=== PATIENT | female | born 1945 | race African-American/Black ===

== ENCOUNTER 2017-07-24 06:22 | Day surgery (SDC) | payer OTHER ==
[~2017-07-24] VITALS: Ht 167.6 cm; Wt 88.2 kg
[~2017-07-24 06:22] MED LIST: ALBU8.5H8 IH; ALPR0.5T8 PO; CARI350T PO; CODE118S2 PO; DIAZ10 PO; ESCI5TAB PO; GLIP5TAB11 PO; HYDR-3971 PO; INSLAN SQ; LEVO500T2 PO; MOME13HF IH; MORP-30 PO; NYST5S PO
[2017-07-24] MEDS ORDERED: BENZOCAINE 20% 50 MCG/SPRAY 57 GM TP ONE (06:23)
[2017-07-24] MEDS ORDERED: LIDOCAINE HCL 2% 30 ML JELLY TP ONE (06:23)
[2017-07-24] MEDS ORDERED: LIDOCAINE HCL 4% 50 ML SOLUTION TP ONE (06:23)
[2017-07-24] MEDS ORDERED: ALBUTEROL SULFATE 2.5 MG/0.5 ML NEB SOLUTION NEB ONE (06:23)
[2017-07-24] MEDS ORDERED: SODIUM CHLORIDE 0.9% 1,000 ML IV ONE ×2 (06:32→08:00)
[2017-07-24] MEDS ORDERED: HYDR25TA PO (07:04)
[2017-07-24] MEDS ORDERED: CETI-290 PO (07:04)
[2017-07-24] MEDS ORDERED: INSU3INS3 SQ (07:04)
[2017-07-24] MEDS ORDERED: OMEP20 PO (07:04)
[2017-07-24] MEDS ORDERED: PRAV40TA4 PO (07:04)
[2017-07-24] MEDS ORDERED: PARO20TA24 PO (07:04)
[2017-07-24] MEDS ORDERED: AMLO-512 PO (07:04)
[2017-07-24 07:08] LABS: GLUCOMETER DEV NAME(LOC) SDS 5; GLUCOSE,POINT OF CARE 167 MG/DL (70-110)
[2017-07-24] MEDS ORDERED: OXYB5 PO (07:25)
[2017-07-24] MEDS ORDERED: HYDR-305 PO (07:25)
[2017-07-24] MEDS ORDERED: BUDE10.2 IH (07:25)
[2017-07-24] MEDS ORDERED: DIAZ5 PO (07:25)
[2017-07-24] MEDS ORDERED: MORP15 PO (07:25)
[2017-07-24] MEDS ORDERED: XALA2.5OS OU (07:25)
[2017-07-24] MEDS ORDERED: UMEC1DIS IH (07:25)
[2017-07-24] MEDS ORDERED: FLUT16H NASAL (07:25)
[2017-07-24] MEDS ORDERED: TRIA1CAP2 PO (07:30)
[2017-07-24] MEDS ORDERED: PANT40TA25 PO (07:30)
[2017-07-24] MEDS ORDERED: LEVO500 PO (07:30)
[2017-07-24] MEDS ORDERED: SITA50 PO (07:30)
[2017-07-24] MEDS ORDERED: ONDA4 PO (07:30)
[2017-07-24] MEDS ORDERED: MONT10TA21 PO (07:30)
[2017-07-24] MEDS ORDERED: OSEL75 PO (07:30)
[2017-07-24] MEDS ORDERED: MIDAZOLAM HCL 2 MG/2 ML VIAL ONE (07:47)
[2017-07-24] MEDS ORDERED: FentaNYL CITRATE-PF 100 MCG/2 ML VIAL ONE (07:47)
[2017-07-24] MEDS ORDERED: MethylPREDNISolone SOD SUCC 125 MG/2 ML VIAL IVP ONE (08:45)
[2017-07-24] MEDS ORDERED: MethylPREDNISolone SOD SUCC 125 MG/2 ML VIAL ONE (09:25)
[2017-07-24] MEDS ORDERED: OXYGEN THERAPY IH SCH (20:00)
== END 2017-07-24 10:55 | disposition home or self-care (01) ==
LOC: SURGERY 06:22
PROVIDERS: ATTEND Internal Medicine Critical Care Medicine
DX: J38.4 Edema of larynx (principal); B37.0 Candidal stomatitis; J84.111 Idiopathic interstitial pneumonia, not otherwise specified; E11.9 Type 2 diabetes mellitus without complications; I10 Essential (primary) hypertension; Z85.819 Personal history of malignant neoplasm of unspecified site of lip, oral cavity, and pharynx; Z98.890 Other specified postprocedural states; Z87.891 Personal history of nicotine dependence; Z79.4 Long term (current) use of insulin; Z79.899 Other long term (current) drug therapy; Z88.0 Allergy status to penicillin; Z91.013 Allergy to seafood; Z98.49 Cataract extraction status, unspecified eye
CPT/HCPCS: 31623; 31624; 71045; 82962; 87015; 87070; 87147; 87205; 87220; 88108; 88312; 93005; J2250; J2930; J3010; J7030

== ENCOUNTER 2018-02-10 06:36 | Day surgery (SDC) | payer OTHER ==
[~2018-02-10] VITALS: Ht 167.6 cm; Wt 86.4 kg
[~2018-02-10 06:36] MED LIST changes: -ALBU8.5H8 IH; -ALPR0.5T8 PO; +AMLO-512 PO; +BUDE10.2 IH; -CARI350T PO; +CETI-290 PO; -CODE118S2 PO; -DIAZ10 PO; +DIAZ5 PO; -ESCI5TAB PO; +FLUT16H NASAL; -GLIP5TAB11 PO; +HYDR-305 PO; -HYDR-3971 PO; +HYDR25TA PO; -INSLAN SQ; +INSU3INS3 SQ; +LEVO500 PO; -LEVO500T2 PO; -MOME13HF IH; +MONT10TA21 PO; -MORP-30 PO; +MORP15 PO; -NYST5S PO; +OMEP20 PO; +ONDA4 PO; +OSEL75 PO; +OXYB5 PO; +PANT40TA25 PO; +PARO20TA24 PO; +PRAV40TA4 PO; +SITA50 PO; +TRIA1CAP2 PO; +UMEC1DIS IH; +XALA2.5OS OU
[2018-02-10] MEDS ORDERED: ALBUTEROL SULFATE 2.5 MG/0.5 ML NEB SOLUTION NEB ONE (06:37)
[2018-02-10] MEDS ORDERED: LIDOCAINE HCL 4% 50 ML SOLUTION TP ONE (06:37)
[2018-02-10] MEDS ORDERED: LIDOCAINE HCL 2% 30 ML JELLY TP ONE (06:37)
[2018-02-10] MEDS ORDERED: BENZOCAINE 20% 50 MCG/SPRAY 57 GM TP ONE (06:37)
[2018-02-10] MEDS ORDERED: SODIUM CHLORIDE 0.9% 1,000 ML IV ONE (06:48)
[2018-02-10] MEDS: SODIUM CHLORIDE 0.9% 1,000 ML IV ONE (07:34)
[2018-02-10 07:38] LABS: GLUCOMETER DEV NAME(LOC) SDS 5; GLUCOSE,POINT OF CARE 125 MG/DL (70-110)
[2018-02-10] MEDS ORDERED: MIDAZOLAM HCL 2 MG/2 ML VIAL ONE (07:50)
[2018-02-10] MEDS ORDERED: FentaNYL CITRATE-PF 100 MCG/2 ML VIAL ONE (07:50)
[2018-02-10] MEDS ORDERED: MethylPREDNISolone SOD SUCC 125 MG/2 ML VIAL ONE (09:16)
[2018-02-10] MEDS: MethylPREDNISolone SOD SUCC 125 MG/2 ML VIAL IVP ONE (09:21)
[2018-02-10] MEDS ORDERED: OXYGEN THERAPY IH SCH (20:00)
== END 2018-02-10 10:20 | disposition home or self-care (01) ==
LOC: SURGERY 06:36
PROVIDERS: ATTEND Internal Medicine Critical Care Medicine
DX: J38.4 Edema of larynx (principal); B37.0 Candidal stomatitis; J84.111 Idiopathic interstitial pneumonia, not otherwise specified; J44.9 Chronic obstructive pulmonary disease, unspecified; I10 Essential (primary) hypertension; E11.9 Type 2 diabetes mellitus without complications; K21.9 Gastro-esophageal reflux disease without esophagitis; Z79.4 Long term (current) use of insulin; Z79.891 Long term (current) use of opiate analgesic; Z85.818 Personal history of malignant neoplasm of other sites of lip, oral cavity, and pharynx; Z87.891 Personal history of nicotine dependence; Z91.013 Allergy to seafood; Z87.442 Personal history of urinary calculi; Z93.1 Gastrostomy status; Z98.49 Cataract extraction status, unspecified eye; Z79.2 Long term (current) use of antibiotics; Z88.0 Allergy status to penicillin; Z79.899 Other long term (current) drug therapy; Z98.890 Other specified postprocedural states
CPT/HCPCS: 31623; 31624; 71045; 82962; 87015; 87070; 87205; 87206; 87220; J2250; J2930; J3010; J7030; 88108; 88312

== ENCOUNTER 2019-07-25 05:49 | Day surgery (SDC) | payer OTHER ==
[~2019-07-25] VITALS: Ht 167.6 cm; Wt 88.6 kg
[~2019-07-25 05:49] MED LIST changes: -AMLO-512 PO; +AMLO10TA7 PO; -CETI-290 PO; +CETI10TA59 PO; -HYDR-305 PO; +HYDR-4455 PO; +ONDA-104 PO; -ONDA4 PO; +SODIUM CHLORIDE 0.9% 1,000 ML ONE
[2019-07-25] MEDS ORDERED: SODIUM CHLORIDE 0.9% 1,000 ML IV ONE (06:30)
[2019-07-25 07:11] LABS: GLUCOMETER DEV NAME(LOC) SDS.; GLUCOSE,POINT OF CARE 136 MG/DL (70-110)
[2019-07-25] MEDS ORDERED: FentaNYL CITRATE-PF 100 MCG/2 ML VIAL ONE (07:31)
[2019-07-25] MEDS ORDERED: MIDAZOLAM HCL 2 MG/2 ML VIAL ONE (07:31)
[2019-07-25] MEDS ORDERED: MethylPREDNISolone SOD SUCC 125 MG/2 ML VIAL IVP ONE (08:30)
[2019-07-25] MEDS ORDERED: MethylPREDNISolone SOD SUCC 125 MG/2 ML VIAL ONE (08:37)
[2019-07-25] MEDS ORDERED: LIDOCAINE 4% 50 ML SOLUTION ONE (17:17)
[2019-07-25] MEDS ORDERED: ALBUTEROL SULFATE 2.5 MG/0.5 ML NEB SOLUTION NEB ONE (17:17)
[2019-07-25] MEDS ORDERED: LIDOCAINE 2% 30 ML JELLY ONE (17:17)
[2019-07-25] MEDS ORDERED: BENZOCAINE 20% 50 MCG/SPRAY 57 GM ONE (17:17)
[2019-07-25] MEDS ORDERED: OXYGEN THERAPY IH SCH (20:00)
== END 2019-07-25 10:00 | disposition home or self-care (01) ==
LOC: SURGERY 05:49
PROVIDERS: ATTEND Internal Medicine Critical Care Medicine
DX: R05 Cough (principal); J34.89 Other specified disorders of nose and nasal sinuses; J98.8 Other specified respiratory disorders; J38.4 Edema of larynx; B37.0 Candidal stomatitis; I10 Essential (primary) hypertension; I25.10 Atherosclerotic heart disease of native coronary artery without angina pectoris; E78.00 Pure hypercholesterolemia, unspecified; E11.9 Type 2 diabetes mellitus without complications; K21.9 Gastro-esophageal reflux disease without esophagitis; Z87.442 Personal history of urinary calculi; Z93.1 Gastrostomy status; Z87.891 Personal history of nicotine dependence; Z98.49 Cataract extraction status, unspecified eye
CPT/HCPCS: 31623; 31624; 71045; 82962; 87015; 87070; 87101; 87205; 87206; 87220; 88108; 88312; J2250; J2930; J3010; J7030

== ENCOUNTER → 2022-03-19 | Day surgery (SDC) | payer OTHER ==
[~2022-03-19] VITALS: Ht 167.6 cm; Wt 87.3 kg
[~2022-03-19] MED LIST changes: +ALBUTEROL SULFATE 2.5 MG/0.5 ML NEB SOLUTION NEB ONE; +AMLO-258 PO; -AMLO10TA7 PO; +BENZOCAINE 20% 50 MCG/SPRAY 57 GM TP ONE; +CETI-450 PO; -CETI10TA59 PO; -DIAZ5 PO; +DIAZ5TAB5 PO; +FLUMAZENIL 0.1 MG/ML 5 ML VIAL IVP ONE; +FentaNYL CITRATE PF 100 MCG/2 ML VIAL ONE; -HYDR25TA PO; +HYDR25TA2 PO; +LEVO-72 PO; -LEVO500 PO; +LIDOCAINE 2% 11 ML JELLY TP ONE; +LIDOCAINE 4% 50 ML SOLUTION TP ONE; +MIDAZOLAM HCL 2 MG/2 ML VIAL ONE; +MIDAZOLAM HCL 5 MG/ML VIAL ONE; +MONT-35 PO; -MONT10TA21 PO; +MethylPREDNISolone SOD SUCC 125 MG/2 ML VIAL IVP ONE; +MethylPREDNISolone SOD SUCC 125 MG/2 ML VIAL ONE; -OXYB5 PO; +OXYB5TAB20 PO; +OXYGEN THERAPY IH SCH; +PANT-31 PO; -PANT40TA25 PO; +PARO-38 PO; -PARO20TA24 PO
[2022-03-19 07:23] LABS: COVID AG,FIA SOURCE NASAL SWAB
[2022-03-19 08:41] LABS: GLUCOMETER DEV NAME(LOC) SDS.; GLUCOSE,POINT OF CARE 71 MG/DL (70-110)
== END | disposition home or self-care (01) ==
LOC: SURGERY 06:56
PROVIDERS: ATTEND Internal Medicine Critical Care Medicine
DX: R05.3 Chronic cough (principal); B37.0 Candidal stomatitis; E11.9 Type 2 diabetes mellitus without complications; J44.9 Chronic obstructive pulmonary disease, unspecified; I10 Essential (primary) hypertension; Z20.822 Contact with and (suspected) exposure to COVID-19; Z79.4 Long term (current) use of insulin; Z79.899 Other long term (current) drug therapy; Z86.16 Personal history of COVID-19; Z87.442 Personal history of urinary calculi; Z87.891 Personal history of nicotine dependence; Z88.0 Allergy status to penicillin; Z88.8 Allergy status to other drugs, medicaments and biological substances; Z98.51 Tubal ligation status; Z98.890 Other specified postprocedural states
CPT/HCPCS: 31623; 88305; 88112; 82962; 87206; 87101; 87220; 87070; 88312; 31624; 71045; 87015; 87426; J3010; J3490; J2250; J2930; Q9967; J7030; C9803; J7613; Z7610